=== PATIENT | female | born 1950 | race African-American/Black ===

== ENCOUNTER 2019-06-09 08:47 | Outpatient (CLI) | payer MEDICARE ==
--- NOTE | 2019-06-09 12:47 | Mammography Report ---
BILATERAL DIGITAL SCREENING MAMMOGRAMS WITH CAD INDICATION: Screening. COMPARISONS: None available. However, she has had a mammogram at [facility]. FINDINGS: Craniocaudal and mediolateral oblique views of both breasts were obtained using 2-D digital acquisition. In addition to standard review, the examination was analyzed for possible abnormalities using a computer-assisted detection device (iCAD). The breasts are almost entirely fatty. Bilateral parenchymal asymmetries require comparison with the prior mammogram or additional imaging. No architectural distortion or suspicious calcifications. IMPRESSION: Comparison with the previous mammogram is required. We will attempt to obtain a prior mammogram for c omparison. If we did not obtain a prior mammogram within 30 days, a revised report will be issued rec ommending a recall for additional imaging. Please be advised that the patient should not schedule an appointment for return until adequate time (at least 2 weeks) has passed breast to obtain the prior m ammogram. BI-RADS CATEGORY 0: INCOMPLETE - NEED ADDITIONAL IMAGING EVALUATION AND/OR PRIOR MAMMOGRAMS FOR COMP ARISON Information is entered into a reminder system for a target due date for the next mammogram. The resul ts and recommendations were sent to the patient by mail. Signer Name: Richmond Snider MD Signed: 06/09/2019 12:43 PM Workstation Name: [id number]
--- NOTE | 2019-06-09 14:08 | Mammography Report ---
BONE DEXA CLINICAL: Menopausal. Status post bilateral hip replacement. Comparison. TECHNIQUE: L-spine bone DEXA performed on an Hologic scanner. Bilateral forearm DEXA was attempted bu t was unsuccessful for technical reasons related to her short stature. FINDINGS: The average BMD of the lumbar spine L1-L4 is 0.678g/cm squared with a T score of -3.4 and a Z score o f -1.4. IMPRESSION: WHO Classification: Osteoporosis with high fracture risk based only on spine measurements. RECOMMENDATION: Clinical correlation and routine screening. Definitions: BMD equal bone mineral density T score = BMD related to peak bone mass of young adult (Blanca expressed an standard deviation) Z score = age-matched BMD expressed in SD World health organization (WHO) diagnostic criteria Normal T score greater than equal to 1 standard deviation Osteopenia T score between -1 and -2.4 standard deviation Osteoporosis T score -2.5 standard deviation or below. Note: BMD is not the only risk factor for fracture; also consider factors such as the patient's age, risk of falling, previous osteoporotic fracture, family history of osteoporotic fractures, current sm oker and low body weight. Z scores are not calculated if greater than 80 years of age. Signer Name: Richmond Snider MD Signed: 06/09/2019 2:04 PM Workstation Name: [id number]
== END 2019-06-09 08:48 | disposition home or self-care (01) ==
LOC: MAMMO 08:47
PROVIDERS: ATTEND Internal Medicine
DX: Z12.31 Encounter for screening mammogram for malignant neoplasm of breast (principal); M81.0 Age-related osteoporosis without current pathological fracture; Z78.0 Asymptomatic menopausal state
CPT/HCPCS: 77067; 77080

== ENCOUNTER 2019-07-01 08:39 | Outpatient (CLI) | payer MEDICARE ==
--- NOTE | 2019-07-01 09:21 | Mammography Report ---
BILATERAL DIGITAL DIAGNOSTIC MAMMOGRAM INDICATION: Recall for bilateral asymmetries. TECHNIQUE: Digital bilateral mammographic imaging was performed. Magnification views were obtained. COMPARISON: 06/09/2019 FINDINGS: Breast Density: The breasts are almost entirely fatty. There is no evidence of dominant mass, suspicious calcifications or architectural distortion in eithe r breast. Satisfactory effacement of bilateral asymmetries on spot magnification views. IMPRESSION: No mammographic evidence of malignancy. BI-RADS Category 1: Negative. Recommend routine screening mammography in one year. A "normal" or negative report should not discourage follow up or biopsy of a clinically significant f inding. A written summary of these findings will be mailed to the patient. The patient will be entered into a mammography reporting system which will generate a reminder letter for the patient's next appointmen t at the appropriate interval. FURTHER INFORMATION: According to the [employer], yearly mammograms are recommend ed starting at age 40 and continuing as long as a woman is in good health. Breast MRI is recommended for women with an approximately 20-25% or greater lifetime risk of breast cancer, including women wi th a strong family history of breast or ovarian cancer and women who have been treated for Hodgkin's disease. Signer Name: Richmond Snider MD Signed: 07/01/2019 9:16 AM Workstation Name: [id number]
== END 2019-07-01 08:40 | disposition home or self-care (01) ==
LOC: MAMMO 08:39
PROVIDERS: ATTEND Internal Medicine
DX: R92.8 Other abnormal and inconclusive findings on diagnostic imaging of breast (principal)
CPT/HCPCS: 77066